=== PATIENT | male | born 1975 | race Caucasian/White ===

== ENCOUNTER 2024-08-10 00:55 | Emergency (ER) | payer MEDICAID, SELFPAY ==
[2024-08-10] VITALS (25 sets, daily range): BP systolic 87–127; BP diastolic 49–78; PULSE 73–121; RESP 9–26; TEMP 37.1; O2SAT 91–96; BMI 33.2
--- NOTE | 2024-08-10 00:58 | EKG_ITS ---
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
--- NOTE | 2024-08-10 01:08 | PD.EDRME ---
Rapid Medical Screening Exam RME Arrival date/time: 08/10/24 00:55 49-year-old male presents emergency department complaining of left sided chest pain that he describes as pressure 10 out of 10. Patient reports onset was 30 minutes ago. Chief Complaint: Chest Pain Time Seen by Provider: 08/10/24 01:07 Vital signs: Vital Signs Temperature 98.7 F 08/10/24 01:04 Pulse Rate 121 H 08/10/24 01:04 Respiratory Rate 18 08/10/24 01:04 Blood Pressure 127/68 08/10/24 01:04 Pulse Oximetry (%) 95 08/10/24 01:04 Oxygen Delivery Method Room Air 08/10/24 01:04 Vital signs reviewed by provider: Yes
[2024-08-10 01:30] LABS: Collection Type, Urine Clean Catch
--- NOTE | 2024-08-10 01:31 | XR_ITS ---
Examination: AP chest single view Technique one AP portable upright chest single view Exam date and time: August 10, 2024 0131 hours INDICATIONS: Chest pain today. FINDINGS: Normal heart size Lungs are clear. Mild osteopenia IMPRESSION: No active disease
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
--- NOTE | 2024-08-10 01:35 | XR_ITS ---
Examination: CTA chest with intravenous contrast 2-D reconstructions 3-D reconstructions, vascular Date and time of exam: August 10, 2024 0241 hrs. Indications: Onset chest pain shortness of breath beginning one hour ago CTDI: vol (mGy) 23.28 DLP: (mGycm) 535 Technique: Multiple axial sections of the thorax have been obtained. 3 mm slice thickness, from below the hemidiaphragms to above the apices of the lungs. Mediastinal and lung density settings have been obtained. 2-D sagittal and coronal reconstructions. 3-D angiographic renderings, 3-D volume renderings, 3D post processing, vascular maximum intensity projections obtained. Contrast administered is 100 cc Isovue-370 intravenous. Low dose protocols were performed. One or more of the following dose reduction techniques were used; automated exposure control, adjustment of the mA and/or KV according to patient size, use of iterative reconstruction technique. Findings: No thoracic aortic aneurysm dilatation or dissection Pulmonary artery segments are not enlarged No pulmonary artery emboli No paratracheal tracheobronchial or bronchopulmonary adenopathy No pneumonia, pulmonary edema, pleural disease Trace pericardial thickening No visualized liver or splenic lesion Contracted gallbladder No pancreatic mass Kidneys partially visualized no hydronephrosis Mild diffuse thoracic degenerative disc disease Impression: Negative for pulmonary artery emboli No pneumonia, pulmonary edema or pleural disease
[2024-08-10] MEDS: MORPHINE SULF INJ 10 MG/ML VIAL 2 MG IVP ×2 (01:49→02:03)
[2024-08-10] MEDS: ASPIRIN 81 MG CHEW PO (01:50)
[2024-08-10] MEDS: ASPIRIN EC 81 MG TABEC PO (01:50)
[2024-08-10] MEDS: NITROGLYCERIN 0.4 MG SUBL BTL #25 SL (01:50)
[2024-08-10 02:15] LABS: B-Type Natriuretic Peptide < 20 pg/mL (0-100); Basophils % (Auto) 0 % (0-2.5); Eosinophils # (Auto) 0.1 Thou/mm3 (0.0-0.5); Eosinophils % (Auto) 2 % (0-10); Hematocrit 47.2 % (41.0-53.0); Hemoglobin 16.1 g/dL (13.5-16.0); Immature Granulocytes % (Auto) 0 % (0-0); Immature Granulocytes Auto 0.04 Thou/mm3 (0.00-0.00); Lymphocytes # (Auto) 0.7 Thou/mm3 (1.0-4.8); Lymphocytes % (Auto) 8 % (10-50); Mean Corpuscular HGB Conc 34.1 g/dl (31.0-37.0); Mean Corpuscular Hemoglobin 28.9 pg (25.0-35.0); Mean Corpuscular Volume 85 fL (80-100); Monocytes # (Auto) 0.4 Thou/mm3 (0.0-0.8); Monocytes % (Auto) 5 % (0-12); Neutrophils # (Auto) 7.6 Thou/mm3 (1.8-7.7); Neutrophils % (Auto) 85 % (37-80); Nucleated Red Blood Cell % 0 /100 WBC (0); Platelet Count 206 Thou/mm3 (140-440); RDW Standard Deviation 40.3 fL (35.1-43.9); Red Blood Count 5.58 Miln/mm3 (4.50-5.90)
[2024-08-10 02:15] LABS: Amphetamine/Methamp Scrn,U Negative (Negative); Barbiturate Screen,Urine Negative (Negative); Benzodiazepines Screen,Urine Negative (Negative); Benzoylecgonine Screen, Ur Negative (Negative); Fentanyl Screen,Urine Negative (Negative); Opiate Screen,Urine Negative (Negative); THC Screen,Urine Negative (Negative)
[2024-08-10 02:16] LABS: Alanine Aminotransferase 23 U/L (10-49); Albumin, Serum 4.5 gm/dL (3.5-5.0); Albumin/Globulin Ratio 1.7 (1.2-2.2); Alkaline Phosphatase 58 U/L (46-116); Anion Gap 7 (7-16); Aspartate Amino Transferase 20 U/L (0-34); BUN/Creatinine Ratio 14 Ratio (12-20); Bilirubin,Total 0.8 mg/dL (0.3-1.2); Blood Urea Nitrogen 14 mg/dL (9-23); Calcium 9.4 mg/dL (8.3-10.6); Calcium (Corrected) 9.4 mg/dL (8.5-10.1); Chloride 109 mMol/L (98-107); Estimated Creatinine Clearance 107.5 mL/min (>60); Globulin 2.6 gm/dL (2.3-3.5); Glucose 130 mg/dL (74-106); Magnesium 1.7 mg/dL (1.6-2.6); Osmolality,Calculated 280 (275-295); Sodium 139 mMol/L (136-145); Total Protein 7.1 gm/dL (5.7-8.2); Troponin I < 0.020 ng/mL (0.0-0.045); eGFR > 60 See Note
[2024-08-10 02:37] LABS: Bacteria,Urine Rare; Bilirubin,Urine Negative (Negative); Blood,Urine 1+ (Negative); Clarity,Urine Clear (Clear/Hazy); Color,Urine Yellow (Lt Yel-Yel); Glucose, Urine Negative (Negative); Ketones,Urine Negative (Negative); Leukocyte Esterase,Urine Positive (Negative); Nitrite,Urine Negative (Negative); Protein,Urine 1+ (Neg - Trace); RBC,Urine 24 /hpf (0-3); Specific Gravity,Urine 1.033 (1.001-1.035); Squamous Epithelial Cell,Urine < 1 /hpf (0-5); WBC,Urine 15 /hpf (0-5)
[2024-08-10] MEDS: Magnesium Sulfate 2 GM Ivpb 2 GM/50 ML BAG IV (03:30)
--- NOTE | 2024-08-10 03:41 | PRELIM_ITS ---
CT angiogram of the chest with intravenous contrast (axial sections with sagittal and coronal reforma ts) August 10, 2024 0241 hours Clinical History: Pulmonary thromboembolism rule out. Technique:Helic al axial sections with sagittal and coronal reformats of the chest were obtained with intravenous con trast. Iterative reconstruction technique was employed to reduce patient radiation exposure. 3D/MIP r econstructed images were also provided. Contrast Dose: Not available. Radiation Dose: Total exam DLP 535 mGy/cm Comparison: No prior study is available for comparison. Findings:There is no filling defec t within the pulmonary artery divisions to suggest pulmonary thromboembolism. The mediastinum demonst rates no evidence of mass or lymphadenopathy. The thoracic aorta is unremarkable. There is no pericar dial effusion. The lungs are clear. No evidence of pleural effusion or pneumothorax.The osseous struc tures are unremarkable.The visualized upper abdominal viscera are unremarkable.Impression:No CT evide nce of pulmonary thromboembolism or other acute intrathoracic pathology. Report Electronically Signed By: Erik Kendrick 08/10/2024 3:40:54 AM [EST]
[2024-08-10 09:23] LABS: Partial Thromboplastin Time 26.8 Seconds (22.0-36.0); Prothrombin Time 11.1 Seconds (9.0-12.2)
== END 2024-08-10 04:45 | disposition home or self-care (01) ==
LOC: SERX 03:35
PROVIDERS: Emergency Provider Emergency Medicine; PCP Family Medicine
DX: R07.89 Other chest pain (principal); R06.02 Shortness of breath; R00.0 Tachycardia, unspecified; F17.210 Nicotine dependence, cigarettes, uncomplicated
CPT/HCPCS: 36415; 71045; 71275; 80053; 80307; 81001; 83735; 83880; 84484; 85025; 85610; 85730; 93005; 96365; 96375; 99285; A4649; J2270; J3475; Q9967; A9270